=== PATIENT | male | born 1985 | race Caucasian/White ===

== ENCOUNTER 2022-12-07 19:01 | Emergency (ER) | payer MEDICARE ==
[~2022-12-07] VITALS: Ht 175.3 cm; Wt 56.8 kg
[2022-12-07 21:43] VITALS: BP 116/88
[2022-12-07] MEDS ORDERED: ketorolac trometh inj. 60 MG/2 ML VIAL IM ONE (22:00)
== END 2022-12-07 22:40 | disposition home or self-care (01) ==
LOC: ER 19:01
DX: T14.8XXA Other injury of unspecified body region, initial encounter (principal); Z88.2 Allergy status to sulfonamides; Z79.899 Other long term (current) drug therapy; X58.XXXA Exposure to other specified factors, initial encounter; Y93.89 Activity, other specified; Y92.89 Other specified places as the place of occurrence of the external cause; Y99.8 Other external cause status
CPT/HCPCS: 73060; 73090; 96372; 99284; J1885

== ENCOUNTER 2025-02-16 09:48 | Outpatient (CLI) | payer MEDICARE ==
--- NOTE | 2025-02-16 11:50 | RADIOLOGY REPORT ---
EXAM: DI SHOULDER, COMPLETE (MIN 2 VWS) CLINICAL INDICATION: LEFT SHOULDER PAIN TECHNIQUE: DI SHOULDER, COMPLETE (MIN 2 VWS) Comparison: None FINDINGS/IMPRESSION: There is no evidence of acute fracture or dislocation. The visualized joint space is well maintained. The alignment is anatomical. There is no radiopaque foreign body.
== END 2025-02-16 23:59 | disposition home or self-care (01) ==
LOC: RAD 09:48
PROVIDERS: ATTEND Family Medicine
DX: M25.512 Pain in left shoulder (principal)
CPT/HCPCS: 73030

== ENCOUNTER 2025-02-19 13:21 | Outpatient (CLI) | payer MEDICARE ==
--- NOTE | 2025-02-19 14:31 | RADIOLOGY REPORT ---
[facility] INDICATION: ACUTE MIDLINE THORACIC BACK PAIN COMPARISON: None TECHNIQUE:3 views of the thoracic spine were obtained. FINDINGS: The thoracic vertebral alignment is normal. The intervertebral disc spaces are well-maintained. No significant facet arthropathy is noted. No acute fracture, vertebral compression deformity or aggressive osseous lesions. The imaged thorax and abdomen are grossly unremarkable. IMPRESSION: No acute fracture.
--- NOTE | 2025-02-19 14:31 | RADIOLOGY REPORT ---
[facility] INDICATION: NECK PAIN COMPARISON: None TECHNIQUE: 4 views of the cervical spine were obtained. FINDINGS: The cervical vertebral alignment is normal. The predental space is normal. The intervertebral disc spaces are well-maintained. No significant facet arthropathy is noted. No acute fracture, vertebral compression deformity or aggressive osseous lesions. The imaged lung apices are unremarkable. IMPRESSION: No acute fracture.
== END 2025-02-19 23:59 | disposition home or self-care (01) ==
LOC: RAD 13:21
PROVIDERS: ATTEND Nurse Practitioner Family
DX: M54.6 Pain in thoracic spine (principal); M54.2 Cervicalgia; V87.7XXA Person injured in collision between other specified motor vehicles (traffic), initial encounter
CPT/HCPCS: 72052; 72070